=== PATIENT | female | born 2005 | race Caucasian/White ===

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

== ENCOUNTER 2023-05-30 16:01 | Emergency (ER) | payer OTHER, SELFPAY ==
[2023-05-30 16:05] VITALS: BP 120/78; PULSE 95; RESP 18; TEMP 36.3; O2SAT 98; BMI 33.7
--- NOTE | 2023-05-30 17:45 | ED.VIS.FEGU ---
HPI HPI - Female History of Present Illness Chief Complaint: Vag Bleeding Informant: patient and parent Narrative Narrative: Patient presents with vaginal bleeding. Patient states her last regular menstrual cycle was beginning of February this year. She evidently has a history of having normal cycles and then she will miss 2 or 3 cycles. The patient states she does not do this a lot but her mom states she has. She has evidently been seen by her [employer] physician, Dr. Thakkar. They have done ultrasound and evaluations. She does not have a history of polycystic ovarian syndrome. She is on Abilify. She was also started on BuSpar 2 or 3 months ago. About 2 weeks ago patient had a small clot. She then had no bleeding. About 2 days ago she started with some bleeding and small clots. But she states the bleeding is less than a normal menstrual cycle not more. She states occasionally she has mild discomfort nonspecific in her abdomen. But she has no symptoms now. No real change with urination. No nausea vomiting fevers or chills. She took a home test that was negative. She has no history of abdominal surgeries. PFSH PFSH Medical History no medical history Home Medications aripiprazole 15 mg tablet mg 05/30/23 [History Last Taken Unknown] naproxen 500 mg tablet (Naprosyn) 500 mg PO BID pain #10 tabs 05/30/23 [Rx Last Taken Unknown] Allergy/AdvReac Type Severity Reaction Status Date / Time No Known Allergies Allergy Verified 05/30/23 16:05 Family History no significant family his Surgical History no surgical history Social History Smoking Status: Never smoker ROS ROS ED ROS Narrative A complete review of systems was performed and is negative except as documented in the history of present illness. Some specific details below. Constitutional: No recent fevers or chills. No malaise. EYE: No visual complaints or pain. ENT: No difficulty swallowing. CV: No chest pain or palpitations. No syncope or presyncope. Respiratory: No dyspnea. No hemoptysis. No difficulty taking breaths. GI: No nausea vomiting diarrhea constipation or change in appetite. : See history of present illness. Musculoskeletal: No recent trauma. No pains. Skin: No rash. Nondiaphoretic. Neuro: No weakness or numbness. Endocrine: No polyuria or polydipsia. EXAM Physical Exam Narrative Exam Narrative: CONSTITUTIONAL: Patient is nontoxic in appearance. The patient looks comfortable. He does not look pale. HEENT: No notable trauma. Mucous membranes moist. EYES: No conjunctival injection. No pallor. CARDIOVASCULAR: Regular rate. Regular rhythm. No notable murmur. No JVD. Not tachycardic and pulses are normal. RESPIRATORY: No respiratory distress. Breathing is unlabored. No wheezes. No rhonchi. No rales. No pain with a deep breath. GASTROINTESTINAL: Not distended. Bowel sounds are normal. No tenderness. No guarding. No rebound. No palpable mass. No bruit. Overall abdomen is completely benign to exam. GENITOURINARY: No tenderness over the bladder. No CVA tenderness. MUSCULOSKELETAL: Atraumatic. No peripheral edema. No cord. No tenderness along the deep venous system. No asymmetry. NEUROLOGICAL: Patient is alert and appropriate. No focal deficit noted. SKIN: No noted rashes. No pallor. PSYCHIATRIC: Patient is calm. Mood is appropriate. Const Vital Signs: 05/30/23 16:05 Temperature 97.4 F L Temperature Source Temporal Pulse Rate 95 Respiratory Rate 18 Blood Pressure 120/78 Blood Pressure Mean 92 Pulse Ox 98 Oxygen Delivery Method Room Air MDM MDM MDM Narrative Medical decision making narrative: Patient CBC shows mild anemia at 9.8. But she also has low MCH MCH C and low MCV indicating this is likely long-term and chronic. I do not think this requires transfusion admission or further work-up. The bleeding she is having now is intermittent and even at its strongest is less than a normal menstrual cycle. Patient's serum is negative. Patient's urine shows no sign of infection. There are some red cells. Patient has a long history of irregular menstrual cycles. She started with a secondary amenorrhea in February or March. About this time she also started BuSpar. Although uncommon this can cause this. She will talk with her doctor about this. I encouraged her to follow-up with her [employer] physician. I do not think this patient needs an acute ultrasound or other work-up. I think the rest of this work-up can be done as an outpatient as she is not , not significantly anemia and has no sign of infection. She is not having pain now. And her exam is benign. With her intermittent cramping and bleeding I will write for Naprosyn to be taken for a few days. Lab Data Attestation: I reviewed the patient's lab results. Labs: Laboratory Results - last 24 hr 05/30/23 05/30/23 17:55 18:00 WBC 7.4 RBC 4.56 Hgb 9.8 L Hct 33.9 L MCV 74.3 L MCH 21.5 L MCHC 28.9 L RDW Std Deviation 55.8 H RDW Coeff of Carmen 21.3 H Plt Count 304 MPV 8.1 Immature Gran % (Auto) 0.300 Neut % (Auto) 56.5 Lymph % (Auto) 32.0 [place] % (Auto) 9.3 Eos % (Auto) 1.4 Baso % (Auto) 0.5 Absolute Neuts (auto) 4.2 Absolute Lymphs (auto) 2.36 Nucleated RBC % 0 Platelet Estimate ADEQUATE RBC Morphology N CHROM Hypochromasia 1+ Anisocytosis 1+ Microcytosis 1+ Serum , Qual NEGATIVE Urine Color Yellow Urine Clarity Sl. Cloudy Urine pH 7.0 Ur Specific [place] 1.010 Urine Protein 15 H Urine Glucose (UA) Normal Urine Ketones Negative Urine Occult Blood 250 H Urine Nitrite Negative Urine Bilirubin Negative Urine Urobilinogen Normal Ur Leukocyte Esterase 100 H Urine RBC 10-25 SEEN Urine WBC 0-5 SEEN Ur Squamous Epith Cells 0-5 SEEN Urine Bacteria RARE Urine Mucus 0 SEEN Discharge Plan Triage Chief Complaint: Vag Bleeding Other Complaint: Abd Pain ED Provider: Kingsley Mlilan Dx/Rx/DC Orders Clinical Impression: Missed period, Vaginal spotting Instructions: Normal Menstrual Cycle, ED Dysfunctional Uterine Bleeding Prescriptions: New naproxen [Naprosyn] 500 mg tablet 500 mg PO BID Qty: 10 0RF No Action aripiprazole 15 mg tablet Patient Comments: TAKE ONE TABLET BY MOUTH DAILY Primary Care Provider: Taras Nuñez Referrals: Leonela Thakkar DO [Med Staff - Active Staff] - As soon as possible Taras Nuñez MD [Primary Care Provider] - Disposition Disposition: Home, Self Care
[2023-05-30 18:02] LABS: Absolute Lymphocyte Count 2.36 X10^3/uL (0.83-4.51); Absolute Neutrophil Count 4.2 X10^3/uL (2.0-7.7); Basophil# 0.04 X10^3/uL; Basophil% 0.5 % (0-1); Eosinophils% 1.4 % (0-5); Hematocrit 33.9 % (37-47); Hemoglobin 9.8 g/dL (12.0-15.0); Lymphocyte # 2.36 X10^3/ul (0.83-4.51); Mean Corp Hgb Conc 28.9 g/dL (32-36); Mean Corpuscular Hgb 21.5 pg (27.0-32.0); Mean Corpuscular Volume 74.3 fL (81-99); Mean Platelet Vol. 8.1 fl (6.2-12.0); Monocyte# 0.69 X10^3/uL; Monocyte% 9.3 % (0-10); NRBC Flagged by Analyzer 0 % (0-5); Neutrophil # 4.17 X10^3/uL (2.7-7.7); Neutrophil % 56.5 % (47-70); POSITIVE MORPHOLOGY YES; Platelet Count 304 K/mm3 (150-450); RBC Distribution Width CV 21.3 % (11.6-14.6); RBC Distribution Width SD 55.8 fl (35.1-43.9); Red Blood Count 4.56 M/mm3 (4.2-5.4); White Blood Count 7.4 K/mm3 (4.4-11.0)
[2023-05-30 18:04] LABS: Differential Indicated SCAN CRITERIA MET
[2023-05-30 18:07] LABS: Mucous, Urine 0 SEEN /hpf (<or=2+)
[2023-05-30 18:13] LABS: Color, Urine Yellow (Yellow); Glucose, Dipstick Normal (Normal); Ketone-Dipstick Negative (Negative); Leukocyte Esterase-Dipstick 100 /ul (Negative); Nitrite-Dipstick Negative (Negative); Occult Blood-Urine 250 /ul (Negative); Protein-Dipstick 15 mg/dl (Negative); Urine Bilirubin Dipstick Negative (Negative); Urine Clarity Sl. Cloudy (Clear); Urine Urobilinogen Normal (Normal)
[2023-05-30 18:18] LABS: Bacteria RARE /hpf (None Seen); Red Blood Cells-Urine 10-25 SEEN /hpf (0-5); White Blood Cells 0-5 SEEN /hpf (0-5)
[2023-05-30 18:19] LABS: Squamous Epithelial Cells - UA 0-5 SEEN /hpf (5-10)
[2023-05-30 18:25] LABS: Anisocytosis 1+; Hypochromasia 1+; Microcytosis 1+; Platelet Estimate ADEQUATE (ADEQ); Red Cell Morphology N CHROM NORMAL (NORM C&C)
[2023-05-30 18:36] LABS: Internal QC Validated? YES +Cl - CLEAR BKGD; Pregnancy, Serum, hCG Quali. NEGATIVE Negative
[2023-05-30 20:11] VITALS: PULSE 81; RESP 16; O2SAT 98
== END 2023-05-30 20:24 | disposition home or self-care (01) ==
PROVIDERS: Emergency Provider Emergency Medicine; PCP Family Medicine; Visit Provider Emergency Medicine
DX: N93.9 Abnormal uterine and vaginal bleeding, unspecified (principal)
CPT/HCPCS: 81001; 84703; 85025; 99283

== ENCOUNTER 2023-05-31 21:24 | Emergency (ER) | payer OTHER, SELFPAY ==
[2023-05-31 21:26] VITALS: BP 116/70; PULSE 98; RESP 16; TEMP 36.9; O2SAT 97; BMI 34.0
--- NOTE | 2023-05-31 21:37 | US_ITS ---
STUDY: ULTRASOUND TRANSVAGINAL CLINICAL: Female, 17 years old. PELVIC pain, bleeding TECHNIQUE: Transvaginal COMPARISON: None. FINDINGS: Normal uterine size measuring 1.4 cm in maximal craniocaudal dimension. There are no myometrial masses. Normal endometrial thickness measuring 14 mm. There are no endometrial masses, and there is no fluid in the endometrial cavity. Normal uterine cervix. Normal right ovary, measuring 3.6 x 2.1 x 3 cm. There are multiple follicles without a dominant cyst. Normal left ovary, measuring 3.7 x 2.1 x 2.3 cm. There are multiple follicles without a dominant cyst. There is no free fluid in the pelvis. Polycystic ovary disease: No. US/Transvaginal Non- IMPRESSION: Normal study Electronically Signed: Emanuel Castañeda MD at 23:20 EDT ,
[2023-05-31 21:48] LABS: Absolute Lymphocyte Count 2.16 X10^3/uL (0.83-4.51); Absolute Neutrophil Count 5.9 X10^3/uL (2.0-7.7); Basophil# 0.04 X10^3/uL; Basophil% 0.4 % (0-1); Eosinophil# 0.09 X10^3/uL; Hematocrit 30.2 % (37-47); Hemoglobin 8.8 g/dL (12.0-15.0); Lymphocyte # 2.16 X10^3/ul (0.83-4.51); Lymphocyte % 23.5 % (19-41); Mean Corp Hgb Conc 29.1 g/dL (32-36); Mean Corpuscular Hgb 21.6 pg (27.0-32.0); Mean Corpuscular Volume 74.2 fL (81-99); Mean Platelet Vol. 7.9 fl (6.2-12.0); Monocyte# 0.93 X10^3/uL; Monocyte% 10.1 % (0-10); NRBC Flagged by Analyzer 0 % (0-5); Neutrophil # 5.94 X10^3/uL (2.7-7.7); Neutrophil % 64.7 % (47-70); POSITIVE MORPHOLOGY YES; Platelet Count 259 K/mm3 (150-450); RBC Distribution Width CV 21.1 % (11.6-14.6); RBC Distribution Width SD 55.8 fl (35.1-43.9); Red Blood Count 4.07 M/mm3 (4.2-5.4); White Blood Count 9.2 K/mm3 (4.4-11.0)
[2023-05-31 22:00] LABS: Differential Indicated SCAN CRITERIA MET
[2023-05-31 22:03] LABS: Internal QC Validated? YES +Cl - CLEAR BKGD; Pregnancy, Serum, hCG Quali. NEGATIVE Negative
--- NOTE | 2023-05-31 22:05 | EX.ED.DYSGE1 ---
HPI History of Present Illness Chief Complaint: Mental Health Informant: patient Narrative Narrative: Patient presents after what she describes as a panic attack at home. I saw this patient yesterday's for some vaginal spotting and small clots after she had not had a period for a few months. She was mildly anemic but no longer bleeding. Plan was close follow-up. This evening she had passage of a few clots close together. 2 of them were larger and almost golf ball size. This caused pain when they passed. She then had what she describes as a panic attack. EMS was called and she has arrived now. She is no longer having the pain. She is not lightheaded. [facility] Medical History Anxiety Home Medications aripiprazole 15 mg tablet 15 mg PO DAILY 05/30/23 [History Last Taken Unknown] naproxen 500 mg tablet (Naprosyn) 500 mg PO BID pain #10 tabs 05/30/23 [Rx Last Taken Unknown] ferrous sulfate 325 mg (65 mg iron) tablet (Feosol) 325 mg PO DAILY #60 tabs 05/31/23 [Rx Last Taken Unknown] venlafaxine 150 mg capsule,extended release 24 hr 300 mg PO DAILY 05/31/23 [History Last Taken Unknown] Allergy/AdvReac Type Severity Reaction Status Date / Time No Known Allergies Allergy Verified 05/31/23 21:26 Social History Smoking Status: Never smoker ROS ROS ED Constitutional Constitutional ED: Denies chills, fever(s) or subjective Eyes Eyes: Denies change in vision ENT ENT ED: Denies rhinorrhea Cardiovascular Cardiovascular: Denies chest pain or palpitations Respiratory/Chest Respiratory/Chest: Denies cough or dyspnea Gastrointestinal Gastrointestinal: Denies nausea or vomiting Genitourinary Genitourinary ED: Reports other Details: See history of present illness ; Denies dysuria, hematuria or urinary frequency Musculoskeletal Musculoskeletal: Denies back pain Integumentary Denies rash Neurologic Neurologic: Denies headache(s) Psychiatric Psychiatric: Reports anxiety, depression and other Details: Patient has a history of anxiety and depression. She is on Abilify, Effexor and BuSpar. She is not having anxiety attack at this time. She has had thoughts of cutting herself over the past couple months but that is not a current issue. She is not suicidal or homicidal at this time. ; Denies suicidal ideation or suicidal thoughts Hematologic/Lymphatic Hematologic/Lymphatic: Denies easy bleeding or easy bruising Allergic/Immunologic Allergic/Immunologic ED: Denies urticaria EXAM Physical Exam Narrative Exam Narrative: Patient is awake alert no acute distress. HEENT shows no pallor. Mucous membranes are moist. Eyes show normal pupillary response and range of motion Neck is supple. Heart is regular. Rate about 90. I hear no murmur gallop or rub. Peripheral pulses are equal. Lungs are clear bilaterally. Saturations are normal at 97% on room air showing no hypoxia. Abdomen is soft. There is no tenderness at all on exam. Patient states that she has a little discomfort in the suprapubic area but is not actually tender. We discussed pelvic exam with her. This will be reported separately. Although she has suprapubic pain there is no tenderness nor is her CVA tenderness. Extremities show no pallor petechiae or purpura. Const Vital Signs: 05/31/23 21:26 05/31/23 23:33 Temperature 98.4 F Temperature Source Oral Pulse Rate 98 Respiratory Rate 16 18 Blood Pressure 116/70 Blood Pressure Mean 85 Pulse Ox 97 99 Oxygen Delivery Method Room Air Room Air MDM MDM MDM Narrative Medical decision making narrative: Pelvic exam was done with nurse Cande in attendance. Patient had not had a pelvic exam before so the process was explained to her. She was comfortable. She just passed a small clot. This was a stringy clot about 2 inches long and just a slight strain. He did not have a large substance to it. Pelvic exam showed normal external genitalia. Small amount of blood in the vaginal vault. Some looked red and there was a small darker clot. Cervix looks normal. There is no tenderness or cervical motion tenderness. No mass or pelvic tenderness of note. Patient CBC does show a slightly lower hemoglobin today. About 1 g drop. Some of this is likely from blood loss. Some may be from IV fluids. Platelets were normal. White count is now. Patient's electrolytes still show no marked abnormalities. Patient's is still Patient's urine shows red cells which are likely from the bleeding but no sign of infection. Patient's pelvic ultrasound shows no acute process. Normal uterus and endometrial stripe. No free fluid. Normal size ovaries. No problems with blood flow. I did discuss the case with Dr. Montemayor on-call for [employer] [employer] [facility]. She recommended close outpatient follow-up. They will likely get her on hormonal therapy to regulate menstrual cycles. She recommended iron supplements in the meantime. Lab Data Labs: Laboratory Results - last 24 hr 05/31/23 05/31/23 21:45 22:40 WBC 9.2 RBC 4.07 L Hgb 8.8 L Hct 30.2 L MCV 74.2 L MCH 21.6 L MCHC 29.1 L RDW Std Deviation 55.8 H RDW Coeff of Carmen 21.1 H Plt Count 259 MPV 7.9 Immature Gran % (Auto) 0.300 Neut % (Auto) 64.7 Lymph % (Auto) 23.5 [place] % (Auto) 10.1 H Eos % (Auto) 1.0 Baso % (Auto) 0.4 Absolute Neuts (auto) 5.9 Absolute Lymphs (auto) 2.16 Nucleated RBC % 0 Differential Comment SCANNED Polychromasia RARE Hypochromasia 1+ Anisocytosis 1+ Microcytosis 1+ Target Cells RARE Sodium 139 Potassium 3.6 Chloride 108 H Carbon Dioxide 26.0 Anion Gap 5 BUN 8 Creatinine 0.71 Estim Creat Clear Calc 110.05 Est GFR (MDRD) Af Amer 135 Est GFR (MDRD) Non-Af 112 BUN/Creatinine Ratio 11.2 Glucose 105 Calcium 8.5 Serum , Qual NEGATIVE Urine Color SEE COMMENT BELOW Urine Clarity Sl. Cloudy Urine pH 7.0 Ur Specific [place] 1.010 Urine Protein 30 H Urine Glucose (UA) Normal Urine Ketones Negative Urine Occult Blood 250 H Urine Nitrite Negative Urine Bilirubin Negative Urine Urobilinogen Normal Ur Leukocyte Esterase 100 H Urine RBC > 100 SEEN Urine WBC 0-5 SEEN Ur Squamous Epith Cells 10-25 SEEN Urine Bacteria 0 SEEN Urine Mucus 0 SEEN Radiography Diagnostic Testing: Clinical Impression(s) from Imaging Studies Transvaginal US 05/31/23 21:37 IMPRESSION: Normal study Electronically Signed: Emanuel Castañeda MD at 23:20 EDT , Discharge Plan Triage Chief Complaint: Mental Health Other Complaint: Abd Pain Anxiety ED Provider: Kingsley Millan Dx/Rx/DC Orders Clinical Impression: Panic attack, Vaginal bleeding Instructions: ED Anxiety Reaction, ED Dysfunctional Uterine Bleeding Prescriptions: New ferrous sulfate [Feosol] 325 mg (65 mg iron) tablet 325 mg PO DAILY Qty: 60 0RF Rx Instructions: Start 1 tablet a day, after a week increase to 1 twice a day. No Action venlafaxine 150 mg capsule,extended release 24hr 300 mg PO DAILY Patient Comments: TAKE TWO CAPSULES BY MOUTH DAILY aripiprazole 15 mg tablet 15 mg PO DAILY Patient Comments: TAKE ONE TABLET BY MOUTH DAILY naproxen [Naprosyn] 500 mg tablet 500 mg PO BID Qty: 10 0RF Primary Care Provider: Taras Nuñez Referrals: Ginny Montemayor MD [Med Staff - Active Staff] - As soon as possible (Call Saturday for close follow-up.) Taras Nuñez MD [Primary Care Provider] - Disposition Disposition: Home, Self Care
[2023-05-31 22:06] LABS: Anion Gap 5 (5-15); BUN 8 mg/dL (7-18); BUN/Creat Ratio 11.2 RATIO (10-20); Calcium,Total 8.5 mg/dL (8.5-10.1); Chloride 108 mmol/L (98-107); Creatinine, Serum 0.71 mg/dL (0.55-1.02); EST Glomerular Filtration Rate 112 mL/min (>60); Est Glom Filt Rate - Afr Amer 135 mL/min (>60); Estimated Creatinine Clearance 110.05 ml/min; Glucose 105 mg/dL (74-106); Potassium 3.6 mmol/L (3.5-5.1); Sodium Level 139 mmol/L (136-145)
--- NOTE | 2023-05-31 22:16 | ED.RN ---
spoke with Lavinia, social work to provide resources for pt. Patient reports sometimes feeling safe at home but did not elaborate. pt arrived alone to ask question but multiple family members are now in room.
[2023-05-31 22:37] LABS: Anisocytosis 1+; Differential Comment SCANNED; Hypochromasia 1+; Microcytosis 1+; Polychromasia RARE
[2023-05-31 22:38] LABS: Target Cells RARE
[2023-05-31 22:46] LABS: Bacteria 0 SEEN /hpf (None Seen); Mucous, Urine 0 SEEN /hpf (<or=2+)
[2023-05-31 22:48] LABS: Glucose, Dipstick Normal (Normal); Ketone-Dipstick Negative (Negative); Leukocyte Esterase-Dipstick 100 /ul (Negative); Nitrite-Dipstick Negative (Negative); Occult Blood-Urine 250 /ul (Negative); Protein-Dipstick 30 mg/dl (Negative); Urine Bilirubin Dipstick Negative (Negative); Urine Clarity Sl. Cloudy (Clear); Urine Urobilinogen Normal (Normal)
[2023-05-31 22:49] LABS: Color, Urine SEE COMMENT BELOW (Yellow)
[2023-05-31 22:56] LABS: Red Blood Cells-Urine > 100 SEEN /hpf (0-5)
[2023-05-31 22:57] LABS: Squamous Epithelial Cells - UA 10-25 SEEN /hpf (5-10)
[2023-05-31 22:58] LABS: White Blood Cells 0-5 SEEN /hpf (0-5)
[2023-05-31 23:33] VITALS: RESP 18; O2SAT 99
[2023-05-31 23:56] VITALS: BP 124/69; PULSE 90; RESP 18; O2SAT 97
== END 2023-05-31 23:57 | disposition home or self-care (01) ==
PROVIDERS: Emergency Provider Emergency Medicine; PCP Family Medicine; Visit Provider Emergency Medicine
DX: F41.0 Panic disorder [episodic paroxysmal anxiety] (principal); N93.9 Abnormal uterine and vaginal bleeding, unspecified; Z79.899 Other long term (current) drug therapy
CPT/HCPCS: 76830; 80048; 81001; 84703; 85025; 93976; 99285; A4216